=== PATIENT | female | born 1930 | race Caucasian/White ===

== ENCOUNTER 2018-03-29 13:49 | Emergency (ER) | payer MEDICARE ==
--- NOTE | 2018-03-29 18:24 | RAD ---
RIGHT HIP 2 VIEWS: Date: 03/29/18 The joint space is preserved. Arthritic changes are quite minimal for age. There is no fracture, area of bony destruction, or gross abnormality of the articular surfaces. The adjacent pubic ring appears intact. IMPRESSION: No acute findings. POS: HOME
== END 2018-03-29 14:59 | disposition home or self-care (01) ==
LOC: BURERS 13:49
DX: M16.11 Unilateral primary osteoarthritis, right hip (principal); E03.9 Hypothyroidism, unspecified; Z79.899 Other long term (current) drug therapy

== ENCOUNTER 2019-01-18 17:51 | Emergency (ER) | payer MEDICARE ==
[~2019-01-18 17:51] MED LIST: Iopamidol 370 76% 125 ML VIAL FS ONE
[2019-01-18] MEDS ORDERED: Metoprolol Tartrate 5 MG/5 ML VIAL ONE ×2 (18:16→19:12)
[2019-01-18] MEDS ORDERED: Enoxaparin Sodium 100 MG/ML SYRINGE ONE (18:16)
[2019-01-18 18:38] LABS: ALT (SGPT) 35 U/L (8-55); AST (SGOT) 49 U/L (5-34); Albumin 3.7 g/dL (3.4-4.8); Alkaline Phosphatase 151 U/L (40-150); Anion Gap 17 mmol/L (10-20); BUN (Urea Nitrogen) 24 mg/dL (9.8-20.1); Bilirubin, Total 1.4 mg/dL (0.2-1.2); Calc. Creatinine Clearance 0 mL/min (70-130); Calcium 10.6 mg/dL (7.8-10.44); Carbon Dioxide 23 mmol/L (23-31); Chloride 100 mmol/L (98-107); Estimated GFR-MDRD 40; Globulin 3.8 g/dL (2.4-3.5); Glucose 115 mg/dL (83-110); Protein, Total 7.5 g/dL (6.0-8.3); Sodium 136 mmol/L (136-145)
[2019-01-18 18:41] LABS: Band 4 % (5-11); Hemoglobin 15.1 g/dL (12.0-16.0); Lymphocytes 6 % (21-51); MDiff Complete? YES; Mean Corpuscular HGB CONC 31.1 g/dL (32.0-36.0); Mean Corpuscular Hemoglobin 27.2 pg (27.0-31.0); Mean Corpuscular Volume 87.3 fL (78.0-98.0); Mean Platelet Volume 9.7 fL (7.4-10.4); Monocytes 10 % (0-10); Neutrophil 75 % (42-75); Platelet Count 194 thou/uL (130-400); RBC Distribution Width 13.3 % (11.5-14.5); Reactive Lymphocytes 5 % (0-10); Red Blood Cell (RBC) Count 5.56 mill/uL (4.20-5.40); White Blood Cell (WBC) Count 18.1 thou/uL (4.8-10.8)
[2019-01-18 18:49] LABS: D-Dimer Test 2.79 *mcg/mL (0.27-0.43); INR-International Normal Ratio 1.1; PTT 33.2 SEC (22.9-36.1); Prothrombin Time 13.8 SEC (12.0-14.7)
[2019-01-18] MEDS ORDERED: cefTRIAXone\\ROCEPHIN 1 GM VIAL ONE (18:53)
[2019-01-18] MEDS ORDERED: Azithromycin 500 MG VIAL ONE (18:53)
--- NOTE | 2019-01-18 21:26 | RAD ---
PORTABLE CHEST: 01/18/19 Comparison is made with a prior study of 07/26/12. There is a dense infiltrate in the base of the right upper lobe. This is presumably a pneumonia. It is somewhat wedge shaped and peripheral. See CT to follow. The left lung is clear. The heart is norm al in size. There is no vascular congestion. IMPRESSION: Dense right upper lobe infiltrate, presumably pneumonia. POS: HOME
--- NOTE | 2019-01-18 21:31 | CT ---
CT ANGIO OF THE CHEST 01/18/[address] of the chest was done after an injection of IV contrast. There is a dense consolidation in the base of the right upper lobe with air bronchograms within it. P ulmonary artery branches clearly run into the consolidated lung. There is excellent opacification of the pulmonary arteries with no internal defects to suggest emboli. I do not see any centrally obstruc ting mass. There is a small right pleural effusion. The other lobes are clear except for some minor b asilar atelectasis. The heart is normal in size and shows no pericardial effusion. There is probably some calcification in the left coronary system. There is no sign of aortic aneurysm or dissection. Sc ans into the upper abdomen showed no acute findings in the area scanned. IMPRESSION: 1. No evidence of pulmonary embolism. 2. Dense consolidation in the base of the right upper lobe consistent with pneumonia. Further ch est films to complete resolution should be obtained. POS: HOME
== END 2019-01-18 20:29 | disposition short-term general hospital (02) ==
LOC: BURERS 17:51
DX: J18.9 Pneumonia, unspecified organism (principal); I48.91 Unspecified atrial fibrillation; I95.9 Hypotension, unspecified; E03.9 Hypothyroidism, unspecified; Z79.899 Other long term (current) drug therapy
CPT/HCPCS: 71045; 71275; 80053; 84443; 84484; 85025; 85379; 85610; 85730; 93005; 96365; 96372; 96375; 96376; J0456; J0696; J1650; Q9967